=== PATIENT | male | born 1975 | race Hispanic/Latino ===

== ENCOUNTER 2018-01-27 07:58 | Day surgery (SDC) | payer BC ==
[2017-12-25 12:09] VITALS: BMI 27.4
[2018-01-27 08:31] VITALS: RESP 18
[2018-01-27] MEDS ORDERED: Propofol 10 mg/ml Inj (20 ML) ONE ×2 (10:07→11:27)
[2018-01-27] MEDS ORDERED: Rocuronium 10 mg/ml (5 ml) ONE (10:07)
[2018-01-27] MEDS ORDERED: Midazolam 2 MG/2 ML VIAL ONE (10:07)
[2018-01-27] MEDS ORDERED: CeFAZolin 1 gm in NS 100ml IVPB ONE (10:18)
[2018-01-27] MEDS ORDERED: Bupivacaine 0.5% Inj(30mL) ONE (10:25)
[2018-01-27] MEDS ORDERED: Neostigmine Methylsulfate 3mg/3ml Syringe IV ONE (10:34)
[2018-01-27] MEDS ORDERED: Desflurane Inhalation Anesthetic Liq (240 ml) ONE (10:34)
[2018-01-27] MEDS ORDERED: Bupivacaine 0.5% Inj(30mL) IJ ONE (10:52)
--- NOTE | 2018-01-27 12:24 | PCM.SURG1 ---
Surgeon's Initial Post Op Note - Surgeon's Notes Surgeon: Dr. Reese Senior Data Architect: Dr. Kimbrough, PGY-3, Dr. Varela PGY-2, Chintan Sy MS3 Type of Anesthesia: General Endo Anesthesia Administered By: Dr. Harris Pre-Operative Diagnosis: Right thyroid goiter Operative Findings: See operative report Post-Operative Diagnosis: Same Operation Performed: Right Thyroid Lobectomy Specimen/Specimens Removed: Right Thyroid lobe Estimated Blood Loss: EBL {In ML}: 30 Blood Products Given: N/A Drains Used: No Drains Post-Op Condition: Good Date of Surgery/Procedure: 01/27/18 Time of Surgery/Procedure: 12:23
[2018-01-27] MEDS ORDERED: Sodium Chloride 0.9% 1,000 ML IV SCH (12:30)
[2018-01-27 18:05] VITALS: O2SAT 98
[2018-01-27 18:11] VITALS: BP 106/70; PULSE 64; TEMP 98
--- NOTE | 2018-01-27 23:13 | OP ---
PROCEDURE DATE: 01/27/2018 PREOPERATIVE DIAGNOSIS: Right thyroid mass. POSTOPERATIVE DIAGNOSIS: Right thyroid mass. PROCEDURES PERFORMED: Right thyroid lobectomy and isthmusectomy. SURGEON: Malachi Reese MD ASSISTANTS: Gloria Kimbrough DO and Racquel Varela DO ANESTHESIOLOGIST: Walker Harris MD TYPE OF ANESTHESIA: General endotracheal anesthesia. ESTIMATED BLOOD LOSS: Minimal. SPECIMEN: Right thyroid lobe and isthmus. INDICATION FOR THE PROCEDURE: The patient is a 42-year-old male with history of enlarging right thyroid mass who was seen by chain testing machine operator and treated with medications, however, without success and therefore biopsy was done showing follicular fluid. The patient was scheduled for right thyroid lobectomy in order to rule out thyroid cancer. DESCRIPTION OF PROCEDURE: The patient was brought to the operating room, placed on operating table in supine position. The patient was connected to the EKG, blood pressure, and pulse oximetry monitors. The patient then underwent general endotracheal anesthesia and was prepped and draped in usual sterile fashion. First, standard time-out procedure took place and everybody in the room agreed as to the patient's identity, diagnosis and procedure to be performed. Surgical operative and postoperative course was also explained to the surgical team. First, using lidocaine mixed with Marcaine, the area of the incision which was about 2 cm above the sternal notch was marked and then infiltrated. We then proceeded with #15 blade making the incision between the anterior borders of the sternocleidomastoid muscles. Then, incision was carried through the subcutaneous fat and platysma muscle. Flaps were raised inferiorly and superiorly and strap muscles were in the midline. The gland was exposed with clear vision of the right lobe protruding anteriorly and laterally. There was also deviation of the trachea to the left. Once the strap muscles were elevated and then retracted, we then carefully immobilized the gland by dissecting off using Harmonic scalpel, pressure and blunt dissection. I was able to fully pull up the nodule together with the underlying gland of the inferior border by carefully taking down the anterior thyroid vein. We then carefully immobilized lateral border of the thyroid going along the branches of the middle thyroid vein and inferior thyroid artery it from the gland out the capsule and then advancing up towards the upper pole of the right lobe which was extending quite high and was carefully dissected out and superior thyroid vein and artery were carefully taken using Harmonic scalpel. Once this was done, the gland was rotated medially and then carefully dissected out of the trachea. We then proceeded mobilizing isthmus and the isthmus was taken on the left side at the junction with left thyroid lobe as one specimen. The isthmus was marked with a stitch and sent for pathology. The wound was then copiously irrigated and all the irrigant fluid was suctioned out. Careful evaluation of the wound revealed course of the recurrent laryngeal nerve intact running towards the cricothyroid muscle. There was also excellent hemostasis noted with no evidence of any bleeding. Once the irrigant fluid was suctioned out and wound dried out, we put a few small pieces of Surgicel into the wound and proceeded with the closure of the wound using 3-0 Vicryl for the strap muscle reapproximation, 3-0 Vicryl for the platysma muscle reapproximation and deep dermal layer skin closure. Skin itself was closed using 4-0 Monocryl in a subcuticular fashion. Sterile Dermabond dressing was applied to the wound. The patient tolerated the procedure well and there were no complications. The patient was awakened and transferred to the recovery room for further observation. Malachi Reese MD
--- NOTE | 2018-01-30 05:56 | OP ---
PROCEDURE DATE: 01/27/2018 PREOPERATIVE DIAGNOSIS: Right thyroid mass. POSTOPERATIVE DIAGNOSIS: Right thyroid mass. PROCEDURES PERFORMED: Right thyroid lobectomy and isthmusectomy. SURGEON: Malachi Reese MD ASSISTANTS: Gloria Kimbrough DO and Racquel Varela DO. ANESTHESIOLOGIST: Walker Harris MD TYPE OF ANESTHESIA: General endotracheal anesthesia. ESTIMATED BLOOD LOSS: Minimal. SPECIMEN: Right thyroid and isthmus. INDICATION FOR THE PROCEDURE: Patient is a 42-year-old male with a history of a large thyroid mass of about 4 cm in greatest diameter of the right lower portion of the thyroid lobe. Patient was seen by castings trimmer and biopsy showed presence of follicular fluid with no cells noted. Therefore, the decision was made to proceed with resection of that lobe due to the suspicion for possible follicular thyroid cancer. DESCRIPTION OF PROCEDURE: The patient was brought to the operating room, placed on the operating table in supine position. The patient was connected to the EKG, blood pressure, and pulse oximetry monitors. The patient then underwent general endotracheal anesthesia and was prepped and draped in the usual sterile fashion. First, a neck roll was placed underneath the upper back prior to draping in order to expose the anterior neck. A standard time-out procedure took place, when everybody in the room agreed as to the patient's identity, diagnoses and procedure to be performed. The operative course as well as the postoperative plan was discussed with the OR team. Using Marcaine, the area of incision between the anterior borders of the sternocleidomastoid muscles as well as 2 cm above the sternal notch was infiltrated. An incision was made through the skin and subcutaneous fat down to the platysma muscle. Next, using electrocautery, this was developed to the subplatysmal muscle plane, and flaps were raised both inferiorly and superiorly on top of the strap muscles. This was then retracted with Weitlaner and strap muscles were using electrocautery. Now, the right lobe was carefully exposed by retracting the strap muscles with loop retractors. The plane was developed along the plane of the thyroid, and thyroid is carefully elevated and flipped medially. The inferior border was then carefully dissected out and the inferior thyroid vein was transected using Harmonic scalpel. I then proceeded with further mobilizing the thyroid lobe laterally down towards the inferior thyroid artery. Next, I mobilized the superior corner of the right thyroid lobe and exposed superior thyroid artery and vein, which were carefully taken down using Harmonic scalpel. Now, the thyroid was clipped medially and further dissected along its wall by transecting small branches of the inferior thyroid artery and middle thyroid vein. The position of the inferior parathyroid was noted adjacent to the inferior thyroid artery. We then carefully mobilized the thyroid medially towards the isthmus, which was also elevated, from the trachea by transecting the ligaments of De Oliveira, and then the specimen was brought out through the incision and transection was done on the side of the left thyroid lobe including the entire isthmus with the specimen. This was transected using Harmonic scalpel. The right side was now copiously irrigated and the irrigant fluid was suctioned out. There was excellent hemostasis noted. Careful dissection revealed the presence of the recurrent laryngeal nerve running underneath the tissues that were mobilized. There was no evidence of any injury to the nerve. The nerve course was entirely noted along its run towards the cricothyroid muscle. Now, the wound was carefully closed using 3-0 Vicryl for reapproximating of the strap muscles, 3-0 Vicryl for reapproximating of the platysma muscle layer and deep dermal layer. The skin was closed using subcuticular 4-0 Monocryl stitch in a running fashion. A sterile Dermabond dressing was applied to the wound. Patient tolerated the procedure well and there were no complications. Patient was awakened and transferred to the recovery room for further observation. Malachi Reese MD
== END 2018-01-27 17:30 | disposition home or self-care (01) ==
LOC: SDS 07:58
PROVIDERS: ATTEND General Practice
DX: D34 Benign neoplasm of thyroid gland (principal)
CPT/HCPCS: 36415; 60220; 82310; 88307; 88331; J0131; J0690; J1100; J2001; J2250; J2405; J2704; J2710; J3010; J7030; J7120